=== PATIENT | female | born 1960 | race Caucasian/White ===

== ENCOUNTER 2023-04-27 11:44 | Inpatient (IN) | payer OTHER, SELFPAY ==
--- NOTE | ~2023-04-27 | XR_ITS ---
EXAMINATION: XR CHEST CLINICAL INFORMATION: Chest pain COMPARISON: None available. TECHNIQUE: 2 views of the chest were obtained. FINDINGS: Cardiac silhouette is normal in size. The lungs are well aerated. There is mild asymmetric elevation of right hemidiaphragm. No lobar consolidation. No pleural effusion or pneumothorax. Mild degenerative changes of the spine. XR/XR chest 2V IMPRESSION: No acute pulmonary pathology.
--- NOTE | ~2023-04-27 | CT_ITS ---
EXAMINATION: CT ANGIOGRAM OF THE CHEST WITH AND WITHOUT CONTRAST (CT PULMONARY ANGIOGRAM FOR PE) CLINICAL INFORMATION: Chest pain. Shortness of breath. Pulmonary embolism. COMPARISON: Chest radiograph from 04/27/2023. TECHNIQUE: Prior to contrast administration, noncontrast localization images were obtained. Subsequently, multidetector volumetric imaging was performed from the thoracic inlet to below the diaphragms following the administration of 80 mL Omnipaque 350 intravenous contrast. No contrast reaction reported Sagittal, coronal, and MIP oblique sagittal reformatted images were obtained on the CT workstation, uploaded to PACS, and reviewed. This CT examination was performed using dose optimization techniques as appropriate, variously including the following: *Automated exposure control. *Adjustment of mA and/or kV according to patient size (this includes techniques or standardized protocols for targeted exams where dose is matched to indication/reason for exam; i.e. extremities or head). *Use of iterative reconstruction technique. DLP: 392 mGy-cm FINDINGS: QUALITY OF STUDY/CONTRAST BOLUS: Satisfactory. PULMONARY ARTERIES: No central or segmental pulmonary emboli. THORACIC AORTA: Normal contour and caliber with mild calcific atherosclerotic disease. No aneurysm or dissection. LUNG: No focal consolidation, nodules or masses. PLEURA: No pleural effusion or pneumothorax. MEDIASTINUM: Normal heart size. No pericardial effusion. No hilar or mediastinal lymphadenopathy. No evidence of septal bowing or right heart strain. Coronary artery calcifications: Present - moderate. CHEST WALL/AXILLA: No axillary or internal mammary lymphadenopathy. OSSEOUS STRUCTURES: No acute or suspicious osseous abnormality. Advanced degenerative disc disease at C6-C7. Moderate degenerative disc disease at T11-T12. Mild degenerative disc disease at all additional levels. UPPER ABDOMEN: Mild asymmetric elevation of the right hemidiaphragm. Otherwise, no demonstrated abnormalities of the visualized upper abdomen. No reflux of contrast into the hepatic veins to suggest elevated right heart pressures. CT/CT angio chest PE protocol IMPRESSION: 1. No evidence of pulmonary embolism. 2. No demonstrated acute pulmonary abnormalities. 3. Coronary artery calcifications. VTE: negative.
--- NOTE | 2023-04-27 11:48 | ECG_ITS ---
Test Reason : chest pain Blood Pressure : / mmHG Vent. Rate : 065 BPM Atrial Rate : 065 BPM P-R Int : 172 ms QRS Dur : 084 ms QT Int : 424 ms P-R-T Axes : -08 -30 -13 degrees QTc Int : 440 ms Normal sinus rhythm Left axis deviation Low voltage QRS Possible Inferior infarct , age undetermined Abnormal ECG When compared with ECG of 27-APR-2023 11:51, No significant change was found Referred By: Alexandrea Hunter Electronically Signed By:DUSTIN PFEIFFER
--- NOTE | 2023-04-27 11:48 | ECG_ITS ---
Test Reason : CP Blood Pressure : / mmHG Vent. Rate : 064 BPM Atrial Rate : 064 BPM P-R Int : 186 ms QRS Dur : 086 ms QT Int : 430 ms P-R-T Axes : 018 -36 -20 degrees QTc Int : 443 ms Normal sinus rhythm Left axis deviation Low voltage QRS Nonspecific T wave abnormality Abnormal ECG No previous ECGs available Referred By: Generic ED Physician Electronically Signed By:DUSTIN PFEIFFER
[2023-04-27 11:56] VITALS: BP 149/85; PULSE 69; RESP 18; TEMP 36.2; O2SAT 98; BMI 35.5
--- NOTE | 2023-04-27 11:56 | ED_ITS ---
HPI - Chest Pain General Chief Complaint: Chest Pain Stated Complaint: chest pain Time Seen by Provider: 04/27/23 12:29 Source: patient Mode of arrival: ambulatory Limitations: no limitations History of Present Illness HPI narrative: 62 yo female with history of CAD s/p stents in 2017 and 2018, thyroid mass on Synthroid who presents to the ER for evaluation of chest pain. She states she was driving from [place] when she suddenly felt lightheaded, dizzy, and had chest pain in the center of her chest that felt like an elephant was sitting on her. She also had cold sweats and nausea. The feeling wound not subside so she pulled over. Daughter drove her to the ER. Patient reports history of similar pain when she ended up requiring cardiac stents. She is on ASA and statin which she took this morning. She reports ongoing chest pressure, nausea and lightheadedness. MD complaint: chest pain Pertinent past history: coronary artery disease Onset (ago): hour(s) (1.5) Timing of current episode: constant Prior episodes: Yes Onset: during rest Pain location: substernal Severity: severe Quality: heaviness Relieving factors: nitroglycerin Exacerbating factors: nothing Associated symptoms: nausea, diaphoresis, dyspnea and sense of impending doom Treatment prior to arrival: none Related Data Home Medications Medication Instructions Recorded Confirmed aspirin 81 mg tablet,delayed 81 mg PO DAILY 04/27/23 04/27/23 release atorvastatin 80 mg tablet 80 mg PO BEDTIME 04/27/23 04/27/23 azelastine 137 mcg (0.1 %) nasal 2 spray intranasal BID PRN Allergy 04/27/23 04/27/23 spray aerosol Symptoms levothyroxine 112 mcg tablet 112 mcg PO DAILY@0600 04/27/23 04/27/23 lisinopril 5 mg tablet 5 mg PO DAILY 04/27/23 04/27/23 metoprolol succinate 100 mg 100 mg PO DAILY 04/27/23 04/27/23 tablet,extended release 24 hr valacyclovir 1 gram tablet 2,000 mg PO BID PRN Cold Sores 04/27/23 04/27/23 Allergies Allergy/AdvReac Type Severity Reaction Status Date / Time No Known Allergies Allergy Verified 04/27/23 12:01 Review of Systems 2 Review of Systems: Yes all other systems are reviewed and are negative FOR[facility]LY [facility] Social History Social History Alcohol intake: current Alcohol intake frequency: holidays/special occasions only Smoked in Last 30 Days: No Use of substances other than those prescribed or required for medical reasons: No Advance Directives: No Advance Directives Information Provided: No Patient : No Physical Exam 2 Vital Signs: Vital Signs: Last Vital Signs Temp 97.6 F 04/27/23 12:10 Pulse 65 04/27/23 12:10 Resp 16 04/27/23 12:10 BP 146/73 H 04/27/23 12:10 Pulse Ox 96 04/27/23 12:10 O2 Del Method Room Air 04/27/23 12:10 BMI result Body Mass Index 35.7 Appearance: Alert. Oriented X3. No acute distress. Head: normocephalic, atraumatic. Eyes: Pupils equal, round and reactive to light. ENT: Pharynx normal. No tonsillar swelling or exudate. Neck: Normal inspection. Neck supple. CVS: Normal heart rate and rhythm. Pulses normal. Respiratory: No respiratory distress. Breath sounds normal. Abdomen: Soft and nontender. +BS x4 Skin: Skin warm and dry. Normal skin color. Normal skin turgor. No rashes. Extremities: right knee with generalized swelling, trace edema right lower leg, no calf tenderness bilaterally. Neuro/psych: Oriented X 3. No motor deficit. No sensory deficit. CN II-XII intact. Normal speech and cognition. Course Course Course Narrative: This is an RME: Additional HPI, ROS, PE not included below will be deferred to primary provider. This is a 34-fxcv-foe-female, with a hx of cardiac hx with 2 stent, thyroid mass, presenting to the emergency department with complaints of left sided chest pressure and left sided facial tingling x 1.5 hours. Patient states that she is originally from [place]. States that she has a place up [facility] and has been traveling to and from [place]. She states that while she was driving today she suddenly developed chest pressure and dizziness. Patient appears stable however given risk factors, will try to get patient back into the main emergency department NAHED. Clear to auscultation bilaterally. Plan: Labs, CXR, EKG, TSH Reevaluation(s) Reevaluation #1: symptoms improved w/ nitro. No PE on CTA planning for admission heparin ordered hospitalist accepts Time: 15:50 Medications Administered Generic Name Dose Route Start Last Admin Trade Name Freq PRN Reason Stop Dose Admin Heparin Sodium/Sodium Chloride 25,000 unit in 250 mls @ 0 mls/hr 04/27/23 14:30 04/27/23 15:39 Heparin Sodium,Porcine/1/2ns IVCONT 9.16 units/kg/hr .Q0M ALETHA 10 mls/hr Administration Protocol Per Protocol Discontinued Medications Generic Name Dose Route Start Last Admin Trade Name Freq PRN Reason Stop Dose Admin Heparin Sodium (Porcine) 4,000 unit 04/27/23 14:22 04/27/23 15:38 Heparin Sodium,Porcine 5,000 Unit/Ml Vial IVPUSH 04/27/23 14:23 4,000 unit ONCE ONE Administration Iohexol 100 ml 04/27/23 14:33 04/27/23 14:33 Iohexol 350 Mg/Ml 100 Ml Infus..Btl IV 04/27/23 14:34 65 ml ONCE ONE Administration Nitroglycerin 0.4 mg 04/27/23 12:58 04/27/23 13:10 Nitroglycerin 0.4 Mg Tab.Subl SUBLINGUAL 04/27/23 12:59 0.4 mg ONCE ONE Administration Ondansetron HCl 4 mg 04/27/23 12:58 04/27/23 13:11 Ondansetron Hcl 4 Mg/2 Ml Vial IVPUSH 04/27/23 12:59 4 mg ONCE ONE Administration Medical Decision Making Medical Decision Making MDM Narrative: 62 yo female with history of CAD s/p stents in 2017 and 2018, thyroid mass on Synthroid who presents to the ER for evaluation of chest pain. She states she was driving from [employer] when she suddenly felt lightheaded, dizzy, and had chest pain in the center of her chest that felt like an elephant was sitting on her. Concern for ACS. EKG without ST elevations. 1st troponin not in ischemic range. repeat pending Given her history case was d/c Cardiology - recommending heparin and admission. Case was also discussed with Dr. Metz supervising MD Patient updated on plan of care. Hospitalist TT for admit Differential Diagnosis Differential Diagnoses: The differential diagnosis associated with the presentation includes STEMI, NSTEMI, unstable angina, PE, myocarditis, pericarditis Admission/Observation Consideration of admission/observation: Escalation of care including admission/observation considered Consult Healthcare Provider Management of the patient was discussed with: [employer] Assistant Dr. Rojo from Cardiology recommending heparinization and admission Lab Data MDM Lab Attestation statement: I reviewed the patient's lab results. 04/27/23 12:27 04/27/23 12:27 Labs: Lab Results 04/27/23 04/27/23 Range/Units 12:27 14:47 WBC 8.7 (4.8-10.8) X10*3/uL RBC 4.24 (4.20-5.50) X10*6/uL Hgb 13.7 (12.0-16.0) g/dl Hct 40.3 (37.0-47.0) % MCV 95.0 (80.0-98.0) fL MCH 32.3 (27.0-33.0) pg MCHC 34.0 (31.0-35.0) g/dl RDW 12.0 (11.0-16.0) % Plt Count 256 (160-400) X10*3/uL MPV 10.6 (9.4-12.3) fL Immature Gran % (Auto) 0.5 H (0.0-0.4) % Neut % (Auto) 75.1 H (45-73) % Lymph % (Auto) 14.7 L (20-40) % [place] % (Auto) 8.6 (2-11) % Eos % (Auto) 0.8 (0-4) % Baso % (Auto) 0.3 (0-2) % Lymph # (Auto) 1.3 (1.2-4.9) X10*3/uL [place] # (Auto) 0.8 (0.1-1.2) X10*3/uL Eos # (Auto) 0.1 (0.0-0.4) X10*3/uL Baso # (Auto) 0.0 (0.0-0.2) X10*3/uL Abs Immat Gran (auto) 0.04 H (0.00-0.03) X10*3/uL Absolute Neuts (auto) 6.5 (2.0-8.3) x10*3/uL Absolute Nucleated RBC 0.000 (0.0-0.012) X10*3/uL Nucleated RBC % (auto) 0.0 (0.0-0.2) /100WBC PT 10.2 L (11.1-13.3) SEC INR 0.8 L (0.9-1.1) APTT 25.6 L (26.0-36.4) SEC Sodium 142 (135-145) mmol/L Potassium 3.9 (3.3-5.1) mmol/L Chloride 111 H (96-108) mmol/L Carbon Dioxide 22 (22-29) mmol/L Anion Gap 13 (12-20) BUN 12 (9-16) mg/dL Creatinine 0.79 (0.5-1.4) mg/dL Estim Creat Clear Calc 98.4 Estimated GFR > 60 Random Glucose 118 H (60-115) mg/dL Calcium 8.9 (8.4-10.2) mg/dL Magnesium 2.1 (1.6-2.6) mg/dL Total Bilirubin 0.4 (0.0-1.0) mg/dL Direct Bilirubin 0.1 (0.0-0.5) mg/dL AST 21 (5-31) U/L ALT 19 (0-31) U/L Alkaline Phosphatase 115 (39-117) U/L Troponin I High Sens 6.8 (<3.5-17.0) ng/L B-Natriuretic Peptide 79 (<100) pg/mL Total Protein 6.9 (6.5-8.0) g/dL Albumin 4.1 (3.5-5.0) g/dL TSH 0.39 (0.32-4.0) uIU/mL Independent Interpretation I performed an independent interpretation of an: EKG and Plain X-Ray Interpretation: EKG with normal sinus rhythm, HR 64 bpm, low voltage QRS, t-wave inversions in leads III, V1, V3. no ST segment elevations CXR without acute infiltrate or effusion, agree w/ radiology read CTA without PE, coronary calcifications noted Radiology Impression Discussion of test interpretation with radiology: I have reviewed the radiologist's reading. Radiologist Impression: EXAMINATION: XR CHEST CLINICAL INFORMATION: Chest pain COMPARISON: None available. TECHNIQUE: 2 views of the chest were obtained. FINDINGS: Cardiac silhouette is normal in size. The lungs are well aerated. There is mild asymmetric elevation of right hemidiaphragm. No lobar consolidation. No pleural effusion or pneumothorax. Mild degenerative changes of the spine. XR/XR chest 2V IMPRESSION: No acute pulmonary pathology. EXAMINATION: CT ANGIOGRAM OF THE CHEST WITH AND WITHOUT CONTRAST (CT PULMONARY ANGIOGRAM FOR PE) CLINICAL INFORMATION: Chest pain. Shortness of breath. Pulmonary embolism. COMPARISON: Chest radiograph from 04/27/2023. FINDINGS: QUALITY OF STUDY/CONTRAST BOLUS: Satisfactory. PULMONARY ARTERIES: No central or segmental pulmonary emboli. THORACIC AORTA: Normal contour and caliber with mild calcific atherosclerotic disease. No aneurysm or dissection. LUNG: No focal consolidation, nodules or masses. PLEURA: No pleural effusion or pneumothorax. MEDIASTINUM: Normal heart size. No pericardial effusion. No hilar or mediastinal lymphadenopathy. No evidence of septal bowing or right heart strain. Coronary artery calcifications: Present - moderate. CHEST WALL/AXILLA: No axillary or internal mammary lymphadenopathy. OSSEOUS STRUCTURES: No acute or suspicious osseous abnormality. Advanced degenerative disc disease at C6-C7. Moderate degenerative disc disease at T11-T12. Mild degenerative disc disease at all additional levels. UPPER ABDOMEN: Mild asymmetric elevation of the right hemidiaphragm. Otherwise, no demonstrated abnormalities of the visualized upper abdomen. No reflux of contrast into the hepatic veins to suggest elevated right heart pressures. CT/CT angio chest PE protocol IMPRESSION: 1. No evidence of pulmonary embolism. 2. No demonstrated acute pulmonary abnormalities. 3. Coronary artery calcifications. Independent Historian Clinical information obtained from an independent historian. History obtained from or confirmed by: Other (adult daughter at bedside) Prescription Management I considered prescription management with: Other (heparin, brillinta, ASA, Statin, betablocker, nitro) Chronic Conditions Patient?s care impacted by: Other (CAD) Scores Heart Score History: -2- highly suspicious ECG: -0- normal Age: -1- >45 - <65 Risk factory: -2- 3 or more risk factors or treated atherosclerosis Troponin: -0- < or = normal limit Score: 5 Risk: 16.6% Critical Care Time Critical Care Time Critical Care Time: Yes Total Critical Care Time: 38 Attestation: I have personally provided critical care time exclusive of time spent on separately billable procedures. Time includes review of lab data, radiology results, discussion with consultants, and monitoring for potential decompensation. Intervention performed as documented. Discharge Plan Discharge Clinical Impression: Unstable angina Chest pain Qualifiers: Chest pain type: unspecified Qualified Code(s): R07.9 - Chest pain, unspecified Patient Disposition: Admitted As Inpatient
[2023-04-27 12:10] VITALS: BP 146/73; PULSE 65; RESP 16; TEMP 36.4; O2SAT 96
--- NOTE | 2023-04-27 12:28 | PC.NURSE ---
pt a&ox3, vss and up to date, nsr on the patient monitor. pt c/o upper chest pain that radiates to left side of face/jaw. pt also endorses nausea, being lightheaded and dizzy. symptoms came on about 1 hour ago while the pt was driving. pt denies taking ASA/nitro prior to coming into the ED. denies numbness/tingling in extremities at this time. pt also endorses SOB. states that the SOB worsens upon exertion. pt able to speak in full, clear sentences w/o difficultly. no WOB shown at this time. lung sounds clear throughout. pt has had PMH of two stents placed in proximal LAD (2016 & 2018). 22gIV placed in the left wrist w/o complications. labs drawn and sent to lab. pt resting comfortably in no apparent distress. respirations even and unlabored. call goel placed within reach.
[2023-04-27 12:32] LABS: MANUAL DIFF FLAG NO
[2023-04-27 12:35] LABS: Basophils Percent Auto 0.3 % (0-2); Eosinophils Absolute Auto 0.1 X10*3/uL (0.0-0.4); Eosinophils Percent Auto 0.8 % (0-4); Hematocrit 40.3 % (37.0-47.0); Hemoglobin 13.7 g/dl (12.0-16.0); Imm Gran Abs Auto 0.04 X10*3/uL (0.00-0.03); Imm Gran Pct Auto 0.5 % (0.0-0.4); Lymphocytes Absolute Auto 1.3 X10*3/uL (1.2-4.9); Lymphocytes Percent Auto 14.7 % (20-40); Mean Corpuscular Hemoglobin 32.3 pg (27.0-33.0); Mean Platelet Volume 10.6 fL (9.4-12.3); Monocytes Absolute Auto 0.8 X10*3/uL (0.1-1.2); Monocytes Percent Auto 8.6 % (2-11); Neutrophils Absolute Auto 6.5 x10*3/uL (2.0-8.3); Neutrophils Percent Auto 75.1 % (45-73); Platelet Count 256 X10*3/uL (160-400); Red Blood Count 4.24 X10*6/uL (4.20-5.50); White Blood Count 8.7 X10*3/uL (4.8-10.8)
[2023-04-27 12:57] LABS: Troponin-I High Sensitivity 6.8 ng/L (<3.5-17.0)
[2023-04-27 12:58] LABS: B Type Natriuretic Peptide 79 pg/mL (<100)
[2023-04-27 13:01] LABS: Alanine Aminotransferase 19 U/L (0-31); Albumin Level 4.1 g/dL (3.5-5.0); Alkaline Phosphatase 115 U/L (39-117); Anion Gap 13 (12-20); Aspartate Amino Transferase 21 U/L (5-31); Bilirubin Direct 0.1 mg/dL (0.0-0.5); Bilirubin Total 0.4 mg/dL (0.0-1.0); Blood Urea Nitrogen 12 mg/dL (9-16); Calcium 8.9 mg/dL (8.4-10.2); Carbon Dioxide 22 mmol/L (22-29); Chloride 111 mmol/L (96-108); Creatinine Clr Calc Pharmacy 98.4; Estimated Glomerular Filt Rate > 60; Glucose Random 118 mg/dL (60-115); Magnesium 2.1 mg/dL (1.6-2.6); Potassium 3.9 mmol/L (3.3-5.1); Sodium 142 mmol/L (135-145); Total Protein 6.9 g/dL (6.5-8.0)
[2023-04-27] MEDS: Nitroglycerin 0.4 MG TAB.SUBL SUBLINGUAL ×2 (13:10→22:32)
[2023-04-27 13:11] LABS: TSH reflex Free T4 0.39 uIU/mL (0.32-4.0)
[2023-04-27] MEDS: ondansetron HCL 4 MG/2 ML VIAL IVPUSH (13:11)
--- NOTE | 2023-04-27 13:15 | PC.NURSE ---
pt returned from CT. medication administered per provider order. will reassess chest discomfort level shortly. pt resting comfortably in no apparent distress. respirations even and unlabored. pt's daughter bedside for support. call goel placed within reach.
--- NOTE | 2023-04-27 14:03 | PC.NURSE ---
pt states that chest discomfort has subsided since nitro administration. nsr on the security monitor. 20gIV placed in the right AC w/o difficulty for CTA. pt resting comfortably in no distress. respirations even and unlabored. call goel placed within reach.
--- NOTE | 2023-04-27 14:15 | PC.NURSE ---
pt currently in CTA.
[2023-04-27 14:27] VITALS: BMI 35.7
[2023-04-27] MEDS: iohexoL 350 MG/ML 100 ML INFUS..BTL IV (14:33)
[2023-04-27 14:58] LABS: INTERNATIONAL NORM RATIO 0.8 (0.9-1.1); Prothrombin Time 10.2 SEC (11.1-13.3)
[2023-04-27 15:00] LABS: Partial Thromboplastin Time 25.6 SEC (26.0-36.4)
--- NOTE | 2023-04-27 15:16 | PHA.MEDREC ---
Pharmacy Consult ? Medication Reconciliation Pharmacy has completed the medication reconciliation. Spoke to patient to confirm meds.
--- NOTE | 2023-04-27 15:22 | P.HPHOSP_ITS ---
History of Present Illness Date of Service: 04/27/23 Attending physician on admission: Alexandrea Hunter Chief Complaint: Chest pain/pressure Pt is a 62-year-old female with a PMH significant for?CAD s/p stents in 2017 and 2018, HTN, HLD, thyroid cancer s/p thyroidectomy who presents to the ED with?chest pressure, lightheadedness, nausea, and diaphoresis. Patient is from out of town and splits her residency between [place] and the [facility]. Patient states she and her daughter were were visiting [place] the past few days and yesterday attended a [employer] and walked to 8 miles. Patient says last night she did not ?feel right? but thought she was dehydrated and felt better after drinking some water. Patient was driving home when she suddenly felt lightheaded, nauseous, diaphoretic, and experienced a chest pressure like a cow sitting on her chest. Pain was centrally located, constant, and non- radiating, though she also noticed some tingling on the left side of her face. After the chest pressure did not resolve after a few minutes, patient pulled over and had her daughter drive to the nearest emergency room. In the emergency room patient was given some nitroglycerin which helped alleviate her pain. Patient is currently feeling much better with minimal chest discomfort and mild nausea. Pt reports she experienced similar symptoms just prior to her stenting in 2017 and 2018. ED consult cardiology who recommended starting heparin drip and admitting patient for further treatment and workup. In the ED patient was afebrile but hypertensive up to 149/85. Labs were grossly unremarkable: Stable H&H, no leukocytosis. Electrolytes largely WNL. Renal function baseline. Hepatic function WNL. Initial troponin detectable at 6.8. BNP 79. CXR showed no acute pulmonary pathology. Chest CTA pending. EKG showed normal sinus rhythm with low-voltage QRS and nonspecific T-wave abnormality with T-wave inversions in leads III and V3. Pt was treated with nitroglycerin, ondansetron, is started on a heparin drip. Pt will be admitted to the hospital under telemetry for treatment and further evaluation of unstable angina. Review of Systems 2 Review of Systems: Chest pressure Diaphoresis Lightheadedness Nausea Chills Denies shortness of breath No abdominal pain PMFSH Social History Alcohol intake: current Alcohol intake frequency: holidays/special occasions only Patient Tobacco Use Status: Never used Tobacco Smoked in Last 30 Days: No Use of substances other than those prescribed or required for medical reasons: No Advance Directives: No Advance Directives Information Provided: No Nutrition Risks: No Nutritional Risk Patient : No Meds Allergies Allergy/AdvReac Type Severity Reaction Status Date / Time No Known Allergies Allergy Verified 04/27/23 12:01 Active Medications: Current Medications Heparin Sodium (Porcine) (Heparin Sodium,Porcine 5,000 Unit/Ml Vial) 4,400 unit 40 unit/kg (4400 unit) IVPUSH PROTOCOL BOLUS PRN; Protocol PRN Reason: 40 unit/kg - Heparin Protocol Heparin Sodium (Porcine) (Heparin Sodium,Porcine 5,000 Unit/Ml Vial) 8,700 unit 80 unit/kg (8700 unit) IVPUSH PROTOCOL BOLUS PRN; Protocol PRN Reason: 80 unit/kg - Heparin Protocol Heparin Sodium/Sodium Chloride (Heparin Sodium,Porcine/1/2ns) 25,000 unit in 250 mls @ 0 mls/hr IVCONT .Q0M ALETHA; Protocol Home Medications Medication Instructions Recorded Confirmed Last Taken Type aspirin 81 mg tablet,delayed 81 mg PO DAILY 04/27/23 04/27/23 04/27/23 09:00 History release atorvastatin 80 mg tablet 80 mg PO BEDTIME 04/27/23 04/27/23 04/26/23 History azelastine 137 mcg (0.1 %) nasal 2 spray intranasal BID PRN Allergy 04/27/23 04/27/23 Unknown History spray aerosol Symptoms levothyroxine 112 mcg tablet 112 mcg PO DAILY@0600 04/27/23 04/27/23 04/27/23 06:00 History lisinopril 5 mg tablet 5 mg PO DAILY 04/27/23 04/27/23 04/27/23 09:00 History metoprolol succinate 100 mg 100 mg PO DAILY 04/27/23 04/27/23 04/27/23 09:00 History tablet,extended release 24 hr valacyclovir 1 gram tablet 2,000 mg PO BID PRN Cold Sores 04/27/23 04/27/23 Unknown History Physical Exam 2 Vital Signs and Narrative: Vital Signs: Last Vital Signs Temp 97.6 F 04/27/23 12:10 Pulse 65 04/27/23 12:10 Resp 16 04/27/23 12:10 BP 146/73 H 04/27/23 12:10 Pulse Ox 96 04/27/23 12:10 O2 Del Method Room Air 04/27/23 12:10 BMI result Body Mass Index 35.7 Constitutional: Alert, in no acute distress. Mental Status: Oriented to person, place and time. Eyes: Pupils are equal, round, and reactive to light. Ear, Nose, and Throat: Oropharynx clear, mucous membranes moist. Ears and nose without deformities. Trachea midline. Respiratory: Clear to auscultation bilaterally. No wheezing, rales, or rhonchi. Cardiovascular: S1, S2 regular. No murmurs, rubs, or gallops. Gastrointestinal: Abdomen soft, non-tender, non-distended. Normal bowel sounds. Neurologic: Cranial nerves II-XII are grossly intact bilaterally. No focal neurological deficits. Moves all extremities spontaneously. Skin: No rashes or lesions noted. Musculoskeletal: No cyanosis or clubbing. Extremities: No edema. Psychiatric: Normal mood and affect. Results Labs 04/27/23 12:27 04/27/23 12:27 Labs: Laboratory Results - last 24 hr 04/27/23 04/27/23 12:27 14:47 MCV 95.0 MCH 32.3 MCHC 34.0 RDW 12.0 Plt Count 256 MPV 10.6 Immature Gran % (Auto) 0.5 H Neut % (Auto) 75.1 H Lymph % (Auto) 14.7 L [place] % (Auto) 8.6 Eos % (Auto) 0.8 Baso % (Auto) 0.3 Lymph # (Auto) 1.3 [place] # (Auto) 0.8 Eos # (Auto) 0.1 Baso # (Auto) 0.0 Abs Immat Gran (auto) 0.04 H Absolute Neuts (auto) 6.5 Absolute Nucleated RBC 0.000 Nucleated RBC % (auto) 0.0 PT 10.2 L INR 0.8 L APTT 25.6 L Anion Gap 13 Estim Creat Clear Calc 98.4 Estimated GFR > 60 Random Glucose 118 H Calcium 8.9 Magnesium 2.1 Total Bilirubin 0.4 Direct Bilirubin 0.1 AST 21 ALT 19 Alkaline Phosphatase 115 B-Natriuretic Peptide 79 Total Protein 6.9 Albumin 4.1 TSH 0.39 Imaging Radiologist's Impressions: Impressions Chest X-Ray 04/27/23 12:54 IMPRESSION: No acute pulmonary pathology. Assessment and Plan (1) Unstable angina: Status: Acute Plan Pt is a 62-year-old female with a PMH significant for?CAD s/p stents in 2017 and 2018, HTN, HLD, thyroid cancer s/p thyroidectomy who presents to the ED with?chest pressure, lightheadedness, nausea, and diaphoresis. Pt will be admitted to the hospital under telemetry for treatment and further evaluation of unstable angina. Unstable angina Patient with chest pressure, lightheadedness, nausea, diaphoresis, chills Hx of CAD with stenting in 2017 and 2018; current symptoms similar to as then Serial troponins unremarkable: 6.8 with repeat flat at 8.0 EKG showing normal sinus rhythm with nonspecific T-wave inversions in leads III and V3 and no evidence ST elevations or depressions Pt was placed on heparin drip in ED, will continue Nitroglycerin prn Cardiology consult Monitor on telemetry CAD Continue aspirin, statin Hypothyroidism Continue levothyroxine HTN Acceptable control on current therapies Continue lisinopril HLD Continue statin Full Code Attending:?Dr. Hunter DVT Prophylaxis: On heparin drip Pt will require a hospitalization of at least two nights for treatment and further evaluation of?unstable angina with heparin drip, closed telemetry monitoring, and specialist consultation. Time Spent With Patient Time: Total time managing care of this patient today ____ minutes. Quality Stroke Does the patient have a stroke diagnosis?: No VTE Prior VTE?: No VTE Risk Level:: Medical - moderate - high VTE Device Contraindication: Treatment Not Indicated VTE Drug Contraindication: N/A - Med Ordered
[2023-04-27] MEDS: Heparin Sodium,Porcine 5,000 UNIT/ML VIAL 4000 UNIT IVPUSH (15:38)
[2023-04-27] MEDS: Heparin Sodium,Porcine/1/2NS 25,000 UNIT/250 ML IV.SOLN 10 UNIT IVCONT (15:39)
--- NOTE | 2023-04-27 15:50 | PC.NURSE ---
labs drawn and sent by tech. heparin drip initiated per protocol. pt speaking w/ hospitalist tona discussing further plan of care.
[2023-04-27 16:10] VITALS: BP 128/66; PULSE 62; RESP 16; TEMP 36.7; O2SAT 96
--- NOTE | 2023-04-27 16:32 | PC.NURSE ---
pt continues to remain a&ox3, vss and up to date, nsr on the monitoring tech. pt verbalizing that chest pain has subsided but she still feels some discomfort. pt also states that dizziness/lightheadedness has subsided. heparin drip continuously administering via drip per protocol/provider order. pt resting comfortably in no apparent distress with the lights dimmed. respirations even and unlabored. call goel placed within reach.
--- NOTE | 2023-04-27 16:59 | PC.NURSE ---
attempted to give report to RN on [facility] - RN not available at this time. states that they will call back shortly.
[2023-04-27 18:03] VITALS: BP 146/79; PULSE 66; RESP 20; TEMP 36.1; O2SAT 98
[2023-04-27 18:58] VITALS: BP 144/69; PULSE 72; RESP 20; TEMP 36.9; O2SAT 94
[2023-04-27] MEDS: Atorvastatin Calcium 80 MG TABLET PO (21:13)
[2023-04-27 22:15] LABS: PTT Heparin Drip 80.8 SEC (53-77.9)
[2023-04-27 23:48] VITALS: BP 135/70; PULSE 65; RESP 20; TEMP 36.6; O2SAT 95
--- NOTE | 2023-04-28 00:42 | PC.NURSE ---
Pt. AOx4. Stated having inside left arm pain from top of arm to her wrist, says it shoots from the top down like an ache. Had PRN Nitroglycerin about 1.5 hours prior which helped with mild chest pressure. Pt unsure if discomfort is from getting the flu shot in the left arm. Notified as an FYI, got back right away and mentioned pt on a heparin gtt already so okay. Pt comfortably resting in bed with call goel within reach. Denies any other symptoms at this time.
[2023-04-28 04:00] VITALS: BP 142/74; PULSE 66; RESP 18; TEMP 36.4; O2SAT 95
[2023-04-28 04:58] LABS: PTT Heparin Drip 51.8 SEC (53-77.9)
[2023-04-28] MEDS: Heparin Sodium,Porcine 5,000 UNIT/ML VIAL 4400 UNIT IVPUSH (05:28)
[2023-04-28] MEDS: Levothyroxine Sodium 112 MCG TABLET PO (05:28)
[2023-04-28 07:39] VITALS: BP 127/64; PULSE 59; RESP 20; TEMP 36.8; O2SAT 95
[2023-04-28 08:24] LABS: Hematocrit 40.1 % (37.0-47.0); Hemoglobin 13.4 g/dl (12.0-16.0); Mean Corpuscular HGB Conc 33.4 g/dl (31.0-35.0); Mean Corpuscular Hemoglobin 32.4 pg (27.0-33.0); Mean Corpuscular Volume 97.1 fL (80.0-98.0); Mean Platelet Volume 11.1 fL (9.4-12.3); Platelet Count 247 X10*3/uL (160-400); Prothrombin Time 12.1 SEC (11.1-13.3); Red Blood Count 4.13 X10*6/uL (4.20-5.50); Red Cell Distribution Width 12.2 % (11.0-16.0); White Blood Count 8.3 X10*3/uL (4.8-10.8)
[2023-04-28] MEDS: Metoprolol Succinate ER 100 MG TAB.ER.24H PO (10:05)
[2023-04-28] MEDS: lisinopriL 5 MG TABLET PO (10:05)
[2023-04-28] MEDS: Aspirin Enteric Coated 81 MG TABLET.DR PO (10:05)
[2023-04-28] MEDS: 0.9 % Sodium Chloride Flush 3 ML SYRINGE IVFLUSH (10:06)
--- NOTE | 2023-04-28 11:07 | MHC.CM.PN ---
EMR REVIEWED, CM MET WPT WHO IS A&OX4, PT REPORTS SHE LIVES W/HER AND DTR AND WAS TRAVELING FROM [place] BACK TO [place] WHEN SHE STARTED NOT FEELING WELL, PT IS FULLY INDEP, DRIVES, DENIES USE OF DME/SERVICES. PT REPORTS SHE HAS A PCP AND HCP IN [place], DECLINES TO COMPLETE A HCP AT [facility] [place]. ANTIC PT WILL DC HOME SELF CARE VS TXFR TO [facility] [place] PENDING CARDIO
[2023-04-28 11:36] VITALS: BP 134/70; PULSE 66; RESP 20; TEMP 36.1; O2SAT 97
--- NOTE | 2023-04-28 12:01 | P.CONCA_ITS ---
History of Present Illness History of Present Illness Date of Service: 04/28/23 Requesting physician: Alexandrea Hunter Chief complaint: Chest pressure, ?unstable angina Narrative: 62-year-old female with known history of coronary artery disease with LAD PCI in 2017 and 18 in [place]. She has 3.5 mm x 15 mm and 3 mm X 26 mm Gilman drug- eluting stent in the past. She said she was driving to [employer] when she suddenly started feeling chest discomfort which was a pressure-like feeling along with dizziness and diaphoresis. These symptoms are similar to her previous anginal episodes. She said she stop the car and drank some water but did not feel better and eventually ended up in [place] [facility]. Here she was given nitroglycerin which relieved her symptoms. She has some subtle T-wave changes inferiorly but no obvious changes otherwise. Her high sensitivity troponin levels are negative. She also had 1 episode of chest discomfort overnight requiring nitroglycerin. She has been on heparin drip and currently is denying any symptoms. [facility] Social History Social History Household Members: Spouse and Children Housing: House Do you presently have visiting nurse or other home services: No Alcohol intake: current Alcohol intake frequency: holidays/special occasions only Patient Tobacco Use Status: Never used Tobacco Smoked in Last 30 Days: No Use of substances other than those prescribed or required for medical reasons: No Currently Displaying Signs/Symptoms of Drug Intoxication Withdrawal: No Have you been hit, kicked, punched, or otherwise hurt by someone within the past year? If so, by whom?: No Do you feel safe in your current relationship?: Yes Is there a partner from a previous relationship who is making you feel unsafe now?: No Are you made to feel afraid or neglected: No Advance Directives: No Advance Directives Information Provided: No Do you have thoughts of harming others: None Do you have a plan to hurt others: No Plan Recently lost weight without trying: No How much weight loss: Not applicable Eating poorly because of decreased appetite: No Nutrition screen score: 0 Nutrition Risks: No Nutritional Risk Patient : No : No Poor oral hygiene: No service: No Meds Allergies Allergy/AdvReac Type Severity Reaction Status Date / Time No Known Allergies Allergy Verified 04/27/23 12:01 Active Medications: Current Medications Acetaminophen (Acetaminophen 325 Mg Tablet) 650 mg PO Q6H PRN PRN Reason: Pain, Mild (Pain Scale 1-3) Aspirin (Aspirin Enteric Coated 81 Mg Tablet.Dr) 81 mg PO DAILY [facility] Last Admin: 04/28/23 10:05 Dose: 81 mg Atorvastatin Calcium (Atorvastatin Calcium 80 Mg Tablet) 80 mg PO BEDTIME [facility] Last Admin: 04/27/23 21:13 Dose: 80 mg Azelastine HCl (Azelastine Hcl Nasal 137 Mcg/[place] 30 Ml) 2 spray NOSTRIL-B BID PRN PRN Reason: Allergy Symptoms Docusate Sodium (Docusate Sodium 100 Mg Capsule) 100 mg PO DAILY PRN PRN Reason: Constipation Heparin Sodium (Porcine) (Heparin Sodium,Porcine 5,000 Unit/Ml Vial) 4,400 unit 40 unit/kg (4400 unit) IVPUSH PROTOCOL BOLUS PRN; Protocol PRN Reason: 40 unit/kg - Heparin Protocol Last Admin: 04/28/23 05:28 Dose: 4,400 unit Heparin Sodium (Porcine) (Heparin Sodium,Porcine 5,000 Unit/Ml Vial) 8,700 unit 80 unit/kg (8700 unit) IVPUSH PROTOCOL BOLUS PRN; Protocol PRN Reason: 80 unit/kg - Heparin Protocol Heparin Sodium/Sodium Chloride (Heparin Sodium,Porcine/1/2ns) 25,000 unit in 250 mls @ 0 mls/hr IVCONT .Q0M [facility]; Protocol Last Titration: 04/28/23 05:26 Dose: 9.16 units/kg/hr, 10 mls/hr Levothyroxine Sodium (Levothyroxine Sodium 112 Mcg Tablet) 112 mcg PO DAILY@0600 [facility] Last Admin: 04/28/23 05:28 Dose: 112 mcg Lisinopril (Lisinopril 5 Mg Tablet) 5 mg PO DAILY [facility]; Protocol Last Admin: 04/28/23 10:05 Dose: 5 mg Metoprolol Succinate (Metoprolol Succinate Er 100 Mg Tab.Er.24h) 100 mg PO DAILY [facility]; Protocol Last Admin: 04/28/23 10:05 Dose: 100 mg Nitroglycerin (Nitroglycerin 0.4 Mg Tab.Subl) 0.4 mg SUBLINGUAL Q5MX3 PRN PRN Reason: Chest Pain Last Admin: 04/27/23 22:32 Dose: 0.4 mg Ondansetron HCl (Ondansetron Hcl 4 Mg/2 Ml Vial) 4 mg IVPUSH Q8H PRN PRN Reason: Nausea and Vomiting Sodium Chloride (0.9 % Sodium Chloride Flush 3 Ml Syringe) 3 ml IVFLUSH QSHIFT [facility] Last Admin: 04/28/23 10:06 Dose: 3 ml Home Medications Medication Instructions Recorded Confirmed Last Taken Type aspirin 81 mg tablet,delayed 81 mg PO DAILY 04/27/23 04/27/23 04/27/23 09:00 History release atorvastatin 80 mg tablet 80 mg PO BEDTIME 04/27/23 04/27/23 04/26/23 History azelastine 137 mcg (0.1 %) nasal 2 spray intranasal BID PRN Allergy 04/27/23 04/27/23 Unknown History spray aerosol Symptoms levothyroxine 112 mcg tablet 112 mcg PO DAILY@0600 04/27/23 04/27/23 04/27/23 06:00 History lisinopril 5 mg tablet 5 mg PO DAILY 04/27/23 04/27/23 04/27/23 09:00 History metoprolol succinate 100 mg 100 mg PO DAILY 04/27/23 04/27/23 04/27/23 09:00 History tablet,extended release 24 hr valacyclovir 1 gram tablet 2,000 mg PO BID PRN Cold Sores 04/27/23 04/27/23 Unknown History Physical Exam 2 Vital Signs: Vital Signs: Last Vital Signs Temp 96.9 F 04/28/23 11:36 Pulse 66 04/28/23 11:36 Resp 20 04/28/23 11:36 BP 134/70 04/28/23 11:36 Pulse Ox 97 04/28/23 11:36 O2 Del Method Room Air 04/28/23 11:36 BMI result Body Mass Index 35.7 GENERAL APPEARANCE: in no acute distress, pleasant. NECK: no carotid bruit, no jugular venous distention. SKIN: no suspicious lesions, warm and dry. HEART: no murmurs, regular rate and rhythm. LUNGS: clear to auscultation bilaterally. ABDOMEN: soft, nontender. EXTREMITIES: no edema. PERIPHERAL PULSES: equal. NEUROLOGIC: No gross deficits, AAO X 3 Objective Labs and Meds 04/28/23 06:56 04/27/23 12:27 Lab results: Laboratory Results - last 24 hr 04/27/23 04/27/23 04/27/23 12:27 14:47 15:35 WBC 8.7 RBC 4.24 Hgb 13.7 Hct 40.3 MCV 95.0 MCH 32.3 MCHC 34.0 RDW 12.0 Plt Count 256 MPV 10.6 Immature Gran % (Auto) 0.5 H Neut % (Auto) 75.1 H Lymph % (Auto) 14.7 L [place] % (Auto) 8.6 Eos % (Auto) 0.8 Baso % (Auto) 0.3 Lymph # (Auto) 1.3 [place] # (Auto) 0.8 Eos # (Auto) 0.1 Baso # (Auto) 0.0 Abs Immat Gran (auto) 0.04 H Absolute Neuts (auto) 6.5 Absolute Nucleated RBC 0.000 Nucleated RBC % (auto) 0.0 PT 10.2 L INR 0.8 L APTT 25.6 L aPTT Heparin Protocol Sodium 142 Potassium 3.9 Chloride 111 H Carbon Dioxide 22 Anion Gap 13 BUN 12 Creatinine 0.79 Estim Creat Clear Calc 98.4 Estimated GFR > 60 Random Glucose 118 H Calcium 8.9 Magnesium 2.1 Total Bilirubin 0.4 Direct Bilirubin 0.1 AST 21 ALT 19 Alkaline Phosphatase 115 Troponin I High Sens 6.8 8.0 B-Natriuretic Peptide 79 Total Protein 6.9 Albumin 4.1 TSH 0.39 04/27/23 04/28/23 04/28/23 21:49 04:34 06:56 WBC 8.3 RBC 4.13 L Hgb 13.4 Hct 40.1 MCV 97.1 MCH 32.4 MCHC 33.4 RDW 12.2 Plt Count 247 MPV 11.1 Immature Gran % (Auto) Neut % (Auto) Lymph % (Auto) [place] % (Auto) Eos % (Auto) Baso % (Auto) Lymph # (Auto) [place] # (Auto) Eos # (Auto) Baso # (Auto) Abs Immat Gran (auto) Absolute Neuts (auto) Absolute Nucleated RBC 0.000 Nucleated RBC % (auto) 0.0 PT 12.1 INR 1.0 APTT aPTT Heparin Protocol 80.8 H 51.8 L D Sodium Potassium Chloride Carbon Dioxide Anion Gap BUN Creatinine Estim Creat Clear Calc Estimated GFR Random Glucose Calcium Magnesium Total Bilirubin Direct Bilirubin AST ALT Alkaline Phosphatase Troponin I High Sens B-Natriuretic Peptide Total Protein Albumin TSH Imaging Radiologist's impression: Impressions Chest X-Ray 04/27/23 12:54 IMPRESSION: No acute pulmonary pathology. Chest CTA 04/27/23 14:31 IMPRESSION: 1. No evidence of pulmonary embolism. 2. No demonstrated acute pulmonary abnormalities. 3. Coronary artery calcifications. VTE: negative. Assessment and Plan (1) Unstable angina: Status: Acute Plan [age] year female presenting with unstable angina. She has known history of LAD disease in the past with 2 drug-eluting stents in 2016 and . Clinical story is consistent with unstable angina and her symptoms are similar to 2016 and 18. I have advised her to undergo a diagnostic angiogram at [facility] and she is agreeable. We are transferring her to [facility] for potential cardiac catheterization tomorrow morning. She was stay NPO after midnight. Continue heparin drip. Continue aspirin and atorvastatin. Repeat EKG this morning. Thank you for allowing me to participate in the care of your patient. Please feel free to contact me if you have any questions. Time Spent With Patient Time: Total time managing care of this patient today ____ minutes. Procedures Date of Service Date of Service: 04/28/23
--- NOTE | 2023-04-28 12:16 | PM.DS ---
DS: Providers Provider Date of Service: 04/28/23 Date of admission: 04/27/23 16:10 Date of discharge: 04/28/23 Primary care physician: None Physician Consults: 04/27/23 14:41 Consult to Cardiology Stat Consulting Provider: [facility] [place] [place] Cardiovascular Services Reason for consultation: unstable angina Has provider been notified: Yes DS: Diagnosis Discharge Diagnosis (1) Unstable angina: Status: Acute DS: Summary Hospital Course Hospital Course: 62-year-old female with a PMH significant for?CAD s/p stents in 2017 and 2018, HTN, HLD, thyroid cancer s/p thyroidectomy who presents to the ED with?chest pressure, lightheadedness, nausea, and diaphoresis. Patient is from out of town and splits her residency between [place] and [facility]. Patient states she and her daughter were were visiting [place] the past few days and yesterday attended a [employer] and walked to 8 miles. Patient says last night she did not ?feel right? but thought she was dehydrated and felt better after drinking some water. Patient was driving home when she suddenly felt lightheaded, nauseous, diaphoretic, and experienced a chest pressure like a cow sitting on her chest. Pain was centrally located, constant, and non-radiating, though she also noticed some tingling on the left side of her face. After the chest pressure did not resolve after a few minutes, patient pulled over and had her daughter drive to the nearest emergency room. In the emergency room patient was given some nitroglycerin which helped alleviate her pain. Patient is currently feeling much better with minimal chest discomfort and mild nausea. Pt reports she experienced similar symptoms just prior to her stenting in 2017 and 2018. ED consult cardiology who recommended starting heparin drip and admitting patient for further treatment and workup. In the ED patient was afebrile but hypertensive up to 149/85. Labs were grossly unremarkable: Stable H&H, no leukocytosis. Electrolytes largely WNL. Renal function baseline. Hepatic function WNL. Initial troponin detectable at 6.8. BNP 79. CXR showed no acute pulmonary pathology. Chest CTA pending. EKG showed normal sinus rhythm with low-voltage QRS and nonspecific T-wave abnormality with T-wave inversions in leads III and V3. Pt was treated with nitroglycerin, ondansetron, is started on a heparin drip. Pt will be admitted to the hospital under telemetry for treatment and further evaluation of unstable angina. Assessment and plan: patient came to the emergency room With chest pain - troponin trended which are 6.8 and 8 respectively. EKG nsr ,admitted for unstable angina: Patient was started on IV heparin drip, nitroglycerin, continued to have at home medications including aspirin, statin, beta-angela: Patient chest pain seems to be improved-patient need to go to [facility] for further cardiac workup and management . Above management discussed the patient in detail length she understand and in agreement with the above plan, time spent 50 min. plan: as above. Time Spent with Patient Time attestation: Total time managing care of this patient today ____ minutes. Discharge coordination time: Greater than 30 minutes Quality: Safe Use of Opioids Does Pt have an Active Cancer Diagnosis on the Problem List?: No Quality: Stroke Does the patient have a stroke diagnosis?: No Physical Exam Vital Signs: Vital Signs: Last Vital Signs Temp 96.9 F 04/28/23 11:36 Pulse 66 04/28/23 11:36 Resp 20 04/28/23 11:36 BP 134/70 04/28/23 11:36 Pulse Ox 97 04/28/23 11:36 O2 Del Method Room Air 04/28/23 11:36 BMI result Body Mass Index 35.7 Appearance: Alert.? Oriented X3.? not in distress.? ?ENT: Pharynx normal.? Moist mucous membranes. cvs: rrr, [id number]. chest:clear to auscultation ,no rhonchii or wheezing abd: no rebound or guarding ,nt, bs present. ext pulses present , no cyanosis ,Gait well balanced well coordinated. neuro: axo3 , nonfocal. DS: Data Data Completed and Pending Labs on day of discharge: Laboratory Results - last 24 hr 04/27/23 04/27/23 04/27/23 12:27 14:47 15:35 WBC 8.7 RBC 4.24 Hgb 13.7 Hct 40.3 MCV 95.0 MCH 32.3 MCHC 34.0 RDW 12.0 Plt Count 256 MPV 10.6 Immature Gran % (Auto) 0.5 H Neut % (Auto) 75.1 H Lymph % (Auto) 14.7 L [place] % (Auto) 8.6 Eos % (Auto) 0.8 Baso % (Auto) 0.3 Lymph # (Auto) 1.3 [place] # (Auto) 0.8 Eos # (Auto) 0.1 Baso # (Auto) 0.0 Abs Immat Gran (auto) 0.04 H Absolute Neuts (auto) 6.5 Absolute Nucleated RBC 0.000 Nucleated RBC % (auto) 0.0 PT 10.2 L INR 0.8 L APTT 25.6 L aPTT Heparin Protocol Sodium 142 Potassium 3.9 Chloride 111 H Carbon Dioxide 22 Anion Gap 13 BUN 12 Creatinine 0.79 Estim Creat Clear Calc 98.4 Estimated GFR > 60 Random Glucose 118 H Calcium 8.9 Magnesium 2.1 Total Bilirubin 0.4 Direct Bilirubin 0.1 AST 21 ALT 19 Alkaline Phosphatase 115 Troponin I High Sens 6.8 8.0 B-Natriuretic Peptide 79 Total Protein 6.9 Albumin 4.1 TSH 0.39 04/27/23 04/28/23 04/28/23 21:49 04:34 06:56 WBC 8.3 RBC 4.13 L Hgb 13.4 Hct 40.1 MCV 97.1 MCH 32.4 MCHC 33.4 RDW 12.2 Plt Count 247 MPV 11.1 Immature Gran % (Auto) Neut % (Auto) Lymph % (Auto) [place] % (Auto) Eos % (Auto) Baso % (Auto) Lymph # (Auto) [place] # (Auto) Eos # (Auto) Baso # (Auto) Abs Immat Gran (auto) Absolute Neuts (auto) Absolute Nucleated RBC 0.000 Nucleated RBC % (auto) 0.0 PT 12.1 INR 1.0 APTT aPTT Heparin Protocol 80.8 H 51.8 L D Sodium Potassium Chloride Carbon Dioxide Anion Gap BUN Creatinine Estim Creat Clear Calc Estimated GFR Random Glucose Calcium Magnesium Total Bilirubin Direct Bilirubin AST ALT Alkaline Phosphatase Troponin I High Sens B-Natriuretic Peptide Total Protein Albumin TSH 04/28/23 11:42 WBC RBC Hgb Hct MCV MCH MCHC RDW Plt Count MPV Immature Gran % (Auto) Neut % (Auto) Lymph % (Auto) [place] % (Auto) Eos % (Auto) Baso % (Auto) Lymph # (Auto) [place] # (Auto) Eos # (Auto) Baso # (Auto) Abs Immat Gran (auto) Absolute Neuts (auto) Absolute Nucleated RBC Nucleated RBC % (auto) PT INR APTT aPTT Heparin Protocol 94.0 H D Sodium Potassium Chloride Carbon Dioxide Anion Gap BUN Creatinine Estim Creat Clear Calc Estimated GFR Random Glucose Calcium Magnesium Total Bilirubin Direct Bilirubin AST ALT Alkaline Phosphatase Troponin I High Sens B-Natriuretic Peptide Total Protein Albumin TSH Imaging Chest x-ray: Radiologist's impression: ITS Impressions Chest X-Ray 04/27/23 12:54 IMPRESSION: No acute pulmonary pathology. Chest CTA 04/27/23 14:31 IMPRESSION: 1. No evidence of pulmonary embolism. 2. No demonstrated acute pulmonary abnormalities. 3. Coronary artery calcifications. VTE: negative. Discharge Plan Discharge Anticipated Discharge Date/Time: 04/28/23 11:52 Patient Disposition: Xfer Acute Care Hospital Discharge Diagnosis: acs Referrals: Physician,None [Primary Care Provider] - 1 Week Discharge Medications: New heparin(porcine) in 0.45% NaCl 25,000 unit/250 mL Parenteral Solution 25,000 unit continuous IV infusion .Q0M Qty: 1 0RF Continued atorvastatin 80 mg tablet 80 mg PO BEDTIME valacyclovir 1 gram tablet 2,000 mg PO BID PRN (Reason: Cold Sores) metoprolol succinate 100 mg tablet extended release 24 hr 100 mg PO DAILY aspirin 81 mg tablet,delayed release (DR/EC) 81 mg PO DAILY lisinopril 5 mg tablet 5 mg PO DAILY azelastine 137 mcg (0.1 %) aerosol,spray 2 spray intranasal BID PRN (Reason: Allergy Symptoms) levothyroxine 112 mcg tablet 112 mcg PO DAILY@0600 Discharge Orders: Discharge Order (Routine); Ordered 04/28/23 Ordered By: Alexandrea Hunter Diet: Advance to usual diet Activity on Discharge: As tolerated Stand Alone Forms: Patient Portal Discharge page Care Plan Goals: patient came to the emergency room With chest pain - troponin trended which are 6.8 and 8 respectively. EKG nsr ,admitted for unstable angina: Patient was started on IV heparin drip, nitroglycerin, continued to have at home medications including aspirin, statin, beta-angela: Patient chest pain seems to be improved-patient need to go to [facility] for further cardiac workup and management . Above management discussed the patient in detail length she understand and in agreement with the above plan, time spent 50 min. Health Concerns: as above. Plan of Treatment: as above. Assessment: as above.
--- NOTE | 2023-04-28 13:08 | MHC.CM.PN ---
PT TRANSFERRING TO [facility]
== END 2023-04-28 15:15 | disposition short-term general hospital (02) | DRG 303 ==
LOC: HO.ED 14:24 → HO.EDOVER 16:36 → HO.IMC 16:54
PROVIDERS: Physician Assistant; Physician Assistant Medical; Student in an Organized Health Care Education/Training Program; Admitting Provider Student in an Organized Health Care Education/Training Program; Emergency Provider Emergency Medicine Emergency Medical Services; Visit Provider Internal Medicine
DX: I25.110 Atherosclerotic heart disease of native coronary artery with unstable angina pectoris (principal); I10 Essential (primary) hypertension; E78.5 Hyperlipidemia, unspecified; E89.0 Postprocedural hypothyroidism; Z23 Encounter for immunization; Z95.5 Presence of coronary angioplasty implant and graft; Z85.850 Personal history of malignant neoplasm of thyroid; Z79.82 Long term (current) use of aspirin; Z79.890 Hormone replacement therapy; Z79.899 Other long term (current) drug therapy
CPT/HCPCS: 36415; 71046; 71275; 80048; 80076; 83735; 83880; 84443; 84484; 85025; 85027; 85610; 85730; 90686; 93005; 99285; J1643; J2405; Q9967

== ENCOUNTER → 2023-04-27 16:10 | Outpatient (BNV) | payer OTHER, SELFPAY | PROVIDERS: Admitting Provider Student in an Organized Health Care Education/Training Program; Emergency Provider Emergency Medicine Emergency Medical Services; Visit Provider Internal Medicine Cardiovascular Disease | DX: I20.0 Unstable angina (principal) | CPT/HCPCS: 99223 ==

== ENCOUNTER → 2023-04-27 16:10 | Outpatient (BNV) | payer OTHER, SELFPAY | PROVIDERS: Admitting Provider Student in an Organized Health Care Education/Training Program; Emergency Provider Emergency Medicine Emergency Medical Services; Visit Provider Student in an Organized Health Care Education/Training Program | DX: I20.0 Unstable angina (principal) | CPT/HCPCS: 99223; 99239 ==

== ENCOUNTER → 2023-04-29 23:59 | Outpatient (BNV) | payer OTHER, SELFPAY | PROVIDERS: Visit Provider Internal Medicine Cardiovascular Disease | DX: I21.4 Non-ST elevation (NSTEMI) myocardial infarction (principal); I20.0 Unstable angina | CPT/HCPCS: 93458; 99152 ==